=== PATIENT | female | born 1965 | race Caucasian/White ===

== ENCOUNTER 2017-06-15 17:09 | Outpatient (CLI) | payer BC ==
--- NOTE | 2017-06-16 07:46 | RAD ---
BILATERAL AP UPRIGHT KNEES 06/15/17 AP views of each knee were obtained. The knees seem bilaterally symmetrical. The joint spaces are no rmal in width bilaterally. There are no particular arthritic changes or signs of fracture. As the patient is standing here, each patella seems subluxed laterally a bit. This may or may not be significant. IMPRESSION: Apparent mild lateral subluxation of each patella but no acute findings otherwise. POS: HOME
== END 2017-06-15 17:10 | disposition home or self-care (01) ==
LOC: BURRAD 17:09
PROVIDERS: ATTEND Family Medicine
DX: M25.561 Pain in right knee (principal); M25.562 Pain in left knee; G89.29 Other chronic pain
CPT/HCPCS: 73565

== ENCOUNTER 2021-09-10 11:47 | Outpatient (CLI) | payer BC | END 2021-09-10 11:48 | disposition home or self-care (01) | LOC: BURRAD 11:47 | PROVIDERS: ATTEND Physician Assistant | DX: M25.531 Pain in right wrist (principal) ==

== ENCOUNTER 2023-04-01 13:57 | Outpatient (CLI) | payer BC | END 2023-04-01 13:58 | disposition home or self-care (01) | LOC: BURRAD 13:57 | PROVIDERS: ATTEND Neurological Surgery | DX: M25.531 Pain in right wrist (principal); M79.642 Pain in left hand; M18.12 Unilateral primary osteoarthritis of first carpometacarpal joint, left hand ==